=== PATIENT | male | born 1940 | race Caucasian/White ===

== ENCOUNTER 2017-04-08 19:07 | Emergency (ER) | payer OTHER ==
[~2017-04-08] VITALS: Ht 181.6 cm; Wt 106.5 kg
[2017-04-08 19:48] LABS: EOSINOPHIL (%) 3.3 % (0-5); EOSINOPHIL COUNT 0.2 K/uL (0-0.3); HEMATOCRIT 38.3 % (38.0-50.0); IMMATURE GRANULOCYTE (%) 0.3 % (0.0-0.7); INSTRUMENT ABS NEUTROPHIL CT 3.9 K/uL; LYMPHOCYTE COUNT 1.4 K/uL (1.0-2.8); MCH 30.3 PG (29.0-34.0); MCHC 34.5 G/DL (30.0-36.0); MCV 87.8 FL (86-99); MONOCYTE (%) 7.8 % (3-12); MONOCYTE COUNT 0.5 K/uL (0-0.8); NEUTROPHIL (%) 64.2 % (45-76); NEUTROPHIL COUNT 3.9 K/uL (1.8-6.4); PLATELET COUNT 179 K/uL (156-360); RBC DIS.WIDTH-CV 12.9 % (11.8-14.6); RBC DIS.WIDTH-SD 41.6 % (39-53); RED BLOOD COUNT 4.36 M/uL (4.00-5.50)
[2017-04-08 20:33] LABS: CHLORIDE 110 mEq/L (99-109); POTASSIUM 3.5 mEq/L (3.7-5.4); SODIUM 144 mEq/L (136-147)
[2017-04-08 20:35] LABS: GLUCOSE 102 mg/dL (70-99)
[2017-04-08 20:36] LABS: ANION GAP 11 MEQ/L (2-14)
[2017-04-08 20:37] LABS: TOTAL BILIRUBIN 1.3 mg/dL (0.0-1.0)
[2017-04-08] MEDS ORDERED: XARELTO1 EACH PO (20:38)
[2017-04-08 20:39] LABS: ALKALINE PHOSPHATASE 46 IU/L (3-129); GFR ESTIMATE (CALCULATED) > 59 mL/min/
[2017-04-08 20:40] LABS: UREA NITROGEN (BUN) 22 mg/dL (9-23)
[2017-04-08] MEDS ORDERED: XARELTO15 MG PO (21:05)
[2017-04-08 21:12] VITALS: BP 128/68
== END 2017-04-08 21:12 | disposition home or self-care (01) ==
LOC: EME 19:07
PROVIDERS: Physician Assistant Medical
DX: I80.01 Phlebitis and thrombophlebitis of superficial vessels of right lower extremity (principal); Z86.718 Personal history of other venous thrombosis and embolism; Z72.0 Tobacco use
CPT/HCPCS: 80053; 85025; 93971; 99281; 99284